=== PATIENT | male | born 1960 | race Caucasian/White ===

== ENCOUNTER 2025-04-06 08:39 | Emergency (ER) | payer MEDICARE ==
[~2025-04-06] VITALS: Ht 177.8 cm; Wt 108.9 kg
[2025-04-06 08:55] VITALS: TEMP 98.6
[2025-04-06 09:41] LABS: BASOPHILS % 0.4 % (0.0-1.0); EOSINOPHILS % 1.6 % (0.0-6.0); LYMPHOCYTES % 19.9 % (18.0-39.1); MONOCYTES % 9.2 % (4.4-11.3); NEUTROPHILS % 68.5 % (38.7-80.0); RED CELL DISTRIBUTION WIDTH 13.0 % (11.7-14.4)
[2025-04-06 10:26] LABS: EST GLOMERULAR FILTRATION RATE 79.0 ML/MIN (>=60)
[2025-04-06] MEDS ORDERED: IOPAMIDOL 370 MG/ML 100 ML INFUS..BTL INJ ONE (10:31)
[2025-04-06 10:54] LABS: INR 0.98
[2025-04-06] MEDS ORDERED: CEPHALEXIN500 MG PO (11:37)
[2025-04-06] MEDS ORDERED: FLOMAX0.4 MG PO (11:37)
[2025-04-06 12:14] VITALS: PULSE 65; RESP 18; O2SAT 100
[2025-04-06 12:49] LABS: LEUKOCYTE ESTERASE ,URINE LARGE (NEGATIVE); PROTEIN,URINE DIPSTICK NEGATIVE (NEGATIVE); URINE UROBILINOGEN 0.2 mg/dL (0.2 - 1)
[2025-04-06 13:00] LABS: EPITHELIAL CELLS,URINE FEW /LPF; WBC,URINE (MAN) >50 /HPF (0-5)
== END 2025-04-06 12:24 | disposition home or self-care (01) ==
LOC: ER 08:54
DX: R33.9 Retention of urine, unspecified (principal); K57.90 Diverticulosis of intestine, part unspecified, without perforation or abscess without bleeding
CPT/HCPCS: 36415; 74177; 80053; 81001; 85025; 85610; 85730; 87086; 87186; 99284; Q9967; 51700